=== PATIENT | female | born 1965 | race Two or more races ===

== ENCOUNTER → 2024-12-16 | Outpatient (CLI) | payer MEDICAID, SELFPAY ==
--- NOTE | 2024-12-16 09:00 | XR_ITS ---
Examination: Breast ultrasound, unilateral, right complete Date and time of exam: December 16, 2024 0929 hours INDICATIONS: Outside mammogram September 30, 2024 11 mm focal asymmetry upper outer right breast Technique: Real-time serrano scale ultrasonographic imaging performed right breast including all 4 quadrants as well as nipple retroareolar and axillary region. Findings: No cystic or solid mass IMPRESSION: BI-RADS Category 1: Negative study
--- NOTE | 2024-12-16 09:30 | XR_ITS ---
Examination: Diagnostic digital mammography, unilateral, right Computer aided detection 3-D breast Tomosynthesis, unilateral Date and time of exam: December 16, 2024 0940 hours INDICATIONS: Outside mammogram September 30, 2024 11 mm focal asymmetry upper outer right breast anterior depth Technique: Nonmagnified MLO, CC views of the right breast have been obtained, reconstructed from 3-D Tomosynthesis images. R2 computer aided detection program utilized for evaluation of suspicious masses and/or abnormal calcifications. 3-D Tomosynthesis images obtained. Findings: Scattered areas of fibroglandular density. Focal asymmetry is confirmed on the spot compression views retroareolar Right breast sonogram today does not demonstrate suspicious nodule Impression: BI-RADS category 3: Probably benign findings One additional 6 month right mammogram follow-up strongly recommended to document stability of focal asymmetry described above
== END | disposition home or self-care (01) ==
PROVIDERS: PCP Nurse Practitioner Family; Referring Provider Nurse Practitioner Family; Visit Provider Nurse Practitioner Family
DX: R92.331 Mammographic heterogeneous density, right breast (principal); N64.89 Other specified disorders of breast
CPT/HCPCS: 76641; 77061; 77065; G0279